=== PATIENT | female | born 1960 | race African-American/Black ===

== ENCOUNTER 2022-03-11 02:27 | Observation (INO) ==
[2022-03-11] MEDS ORDERED: LABETALOL 20 MG/4 ML SYRINGE IV STA (02:54)
[2022-03-11 03:06] LABS: Basophils # 0.1 10*3/uL (0.0-0.2); Basophils % 0.8 % (0.0-0.8); Eosinophils # 0.2 10*3/uL (0.0-0.87); Eosinophils % 3.1 % (0.00-10.9); Hematocrit 34.8 VOL% (35.7-47.0); Hemoglobin 11.4 GM/DL (12.0-16.0); Immature Granulocytes % 0.2 %; Immature Granulocytes Absolute 0.01 #; Lymphocytes # 4.1 10*3/uL (1.4-4.0); Lymphocytes % 65.5 % (21.3-54.2); Mean Corpuscular HGB Conc 32.8 GM/DL (32-36); Mean Corpuscular Volume 90.6 FL (87-102); Mean Platelet Volume 9.1 FL (9.6-12.0); Monocytes # 0.9 10*3/uL (0.11-0.8); Monocytes % 13.9 % (1.7-12.7); Neutrophils % 16.5 % (38.7-73.9); Platelet Count 337 T/CUMM (130-400); Red Blood Count 3.84 MC/CUMM (3.8-5.5); Red Cell Distribution Width 13.2 % (9.3-17.3); White Blood Count 6.2 T/CUMM (4-12)
[2022-03-11 03:24] LABS: Alanine Aminotransferase 12 U/L (13-56); Albumin 3.8 G/DL (3.4-5.0); Alkaline Phosphatase 105 U/L (45-117); Aspartate Amino Transferase 19 U/L (0-37); Bilirubin,Total < 0.39 MG/DL (0.20-1.00); Blood Urea Nitrogen 14 MG/DL (7-18); Calcium 9.4 MG/DL (8.5-10.1); Carbon Dioxide 26 MMOL/L (21-32); Chloride 106 MMOL/L (98-107); Glucose 164 MG/DL (74-106); Osmolality,Calculated 283.4 MOS/KG (273-304); Potassium 3.5 MMOL/L (3.5-5.1); Sodium 140 MMOL/L (136-145); Total Protein 7.3 G/DL (6.4-8.2)
[2022-03-11 03:25] LABS: PT Patient Result 10.9 SECS (10.1-12.1)
[2022-03-11 03:30] LABS: Atypical Lymphocytes Few; Eosinophils 2 % (0-10); Lymphocytes 67 % (20-55); Platelet Estimate Adequate; Total Cells Counted 100
[2022-03-11] MEDS ORDERED: NITROGLYCERIN SL 0.4 MG TABLET SL STA (03:34)
[2022-03-11 03:45] LABS: Bacteria,Urine Occasional /HPF (Few); Mucus,Urine Occasional /LPF (Occasional); Squamous Epithelial Cell,Urine Occasional /HPF (0-10)
[2022-03-11 03:46] LABS: Glucose,Urine (UA) Negative (Negative); Ketones,Urine Negative (Negative); Protein,Urine Negative (Negative); Urine Appearance Clear (Clear); Urine Color Light Yellow (Yellow)
[2022-03-11 03:47] LABS: Bilirubin,Urine Negative (Negative); Blood, Urine Small mg/dL (Negative); Nitrite,Urine Negative (Negative); Urine Urobilinogen 0.2 eU/dL (<2.0)
[2022-03-11 04:20] LABS: Barbiturates Screen,Urine Negative (Negative); Benzodiazepines Screen,Urine Negative (Negative); Cannabinoid Screen,Urine Negative (Negative); Opiate Screen,Urine Positive (Negative); Phencyclidine Screen,Urine Negative (Negative)
[2022-03-11] MEDS ORDERED: ONDANSETRON 4 MG/2 ML VIAL IV PRN (05:01)
[2022-03-11] MEDS ORDERED: ACETAMINOPHEN 325 MG TABLET PO PRN (05:01)
[2022-03-11] MEDS ORDERED: ALUMINUM/MAGNES/SIMETH MAX STR 30 ML UDCUP PO PRN (05:01)
[2022-03-11] MEDS ORDERED: hydrALAZINE 20 MG/1 ML VIAL IV PRN (05:01)
[2022-03-11] MEDS ORDERED: ASPIRIN 325 MG TABLET PO STA (05:43)
[2022-03-11] MEDS ORDERED: LEVOTHYROXINE 50 MCG TABLET PO ONE (06:00)
[2022-03-11] MEDS: LOSARTAN 50 MG TABLET PO SCH (06:15)
[2022-03-11] MEDS: amLODIPine 10 MG TABLET PO SCH (06:15)
[2022-03-11] MEDS ORDERED: INFLUENZA VIRUS VACCINE 0.5 ML SYRINGE IM ONE (08:56)
[2022-03-11] MEDS ORDERED: POTASSIUM CHLORIDE 20 MEQ TABLET PO SCH (09:00)
[2022-03-11] MEDS: PREGABALIN 100 MG CAPSULE PO SCH (10:44)
[2022-03-11] MEDS: PANTOPRAZOLE 40 MG TABLET PO SCH (10:44)
[2022-03-11] MEDS: DOCUSATE SODIUM 100 MG CAPSULE PO SCH ×2 (10:44→20:48)
[2022-03-11] MEDS ORDERED: ENOXAPARIN 40 MG/0.4 ML SYRINGE SUBCUT SCH (21:00)
[2022-03-12 04:39] LABS: Basophils # 0.1 10*3/uL (0.0-0.2); Eosinophils # 0.3 10*3/uL (0.0-0.87); Eosinophils % 5.7 % (0.00-10.9); Hematocrit 34.3 VOL% (35.7-47.0); Immature Granulocytes % 0.2 %; Immature Granulocytes Absolute 0.01 #; Lymphocytes # 3.2 10*3/uL (1.4-4.0); Lymphocytes % 61.6 % (21.3-54.2); Mean Corpuscular HGB Conc 32.1 GM/DL (32-36); Mean Platelet Volume 9.2 FL (9.6-12.0); Monocytes # 0.6 10*3/uL (0.11-0.8); Monocytes % 11.9 % (1.7-12.7); Neutrophils % 19.6 % (38.7-73.9); Platelet Count 324 T/CUMM (130-400); Red Blood Count 3.73 MC/CUMM (3.8-5.5); Red Cell Distribution Width 13.2 % (9.3-17.3); White Blood Count 5.1 T/CUMM (4-12)
[2022-03-12 05:03] LABS: Calcium 8.5 MG/DL (8.5-10.1); Osmolality,Calculated 280.3 MOS/KG (273-304); Potassium 3.8 MMOL/L (3.5-5.1)
[2022-03-12 05:16] LABS: Eosinophils 8 % (0-10); Hypochromia Slight; Lymphocytes 58 % (20-55); Platelet Estimate Adequate; Total Cells Counted 100
[2022-03-12 05:17] LABS: Atypical Lymphocytes Few
[2022-03-12] MEDS ORDERED: LEVOTHYROXINE 100 MCG TABLET PO SCH (06:30)
[2022-03-12] MEDS: PANTOPRAZOLE 40 MG TABLET PO SCH (09:52)
[2022-03-12] MEDS: amLODIPine 10 MG TABLET PO SCH (09:52)
[2022-03-12] MEDS: PREGABALIN 100 MG CAPSULE PO SCH (09:52)
[2022-03-12] MEDS: LOSARTAN 50 MG TABLET PO SCH (09:52)
[2022-03-12] MEDS: DOCUSATE SODIUM 100 MG CAPSULE PO SCH (09:52)
[2022-03-12 11:21] VITALS: BP 122/75
== END 2022-03-12 15:16 | disposition home or self-care (01) ==
LOC: SUATTDRO → N.ED 02:27 → N.EDINP 02:27 → N.TELEN 10:20
PROVIDERS: ADMIT Internal Medicine Geriatric Medicine; ATTEND Internal Medicine Geriatric Medicine